=== PATIENT | female | born 1985 | race African-American/Black ===

== ENCOUNTER 2017-12-18 15:40 | Emergency (ER) | payer SELFPAY ==
[~2017-12-18] VITALS: Ht 170.2 cm; Wt 61.0 kg
[~2017-12-18 15:40] MED LIST: ALBUTEROL
[2017-12-18] MEDS ORDERED: ACETAMINOPHEN 325MG TABLET PO STA (18:31)
[2017-12-18 18:57] LABS: BASOPHILS % 0.2 % (0.0-2.0); EOSINOPHILS % 0.3 % (0.0-5.0); HEMATOCRIT. 40.2 % (36.0-48.0); HEMOGLOBIN. 13.5 g/dL (12.0-16.0); LYMPHOCYTES % 12.7 % (20.0-50.0); MEAN CORPUSCULAR VOLUME 83.8 fL (81.0-99.0); MEAN PLATELET VOLUME 7.5 fl (7.4-10.4); MONOCYTES % 12.9 % (2.0-8.0); NEUTROPHILS % 73.9 % (40.0-76.0); PLATELET 238 x1000/uL (130-400); RED CELL DISTRIBUTION WIDTH 13.7 % (11.6-14.6)
[2017-12-18 19:01] LABS: CHLORIDE 101 mEq/L (98-107)
[2017-12-18 19:02] LABS: PROTHROMBIN TIME 10.8 sec (9.4-11.6)
[2017-12-18 19:03] LABS: CARBON DIOXIDE 30 mEq/L (21-32)
[2017-12-18] MEDS ORDERED: KETOROLAC 60MG/2ML VIAL IM ONE (20:00)
[2017-12-18] MEDS ORDERED: CYCLOBENZAPRINE 10MG TABLET PO ONE (20:00)
[2017-12-18 20:38] LABS: CLARITY URINE CLOUDY (CLEAR); COLOR URINE DARK YELLOW (YELLOW); KETONES URINE 1+ (NEGATIVE); LEUKOCYTE ESTERASE URINE 1+ (NEGATIVE); NITRITE URINE NEGATIVE (NEGATIVE); OCCULT BLOOD URINE NEGATIVE (NEGATIVE); PH URINE 5.5 (4.5-8.0); PROTEIN URINE TRACE (NEGATIVE); SPECIFIC GRAVITY URINE 1.035 (1.005-1.030)
[2017-12-18 21:56] VITALS: BP 112/72
== END 2017-12-18 23:10 | disposition home or self-care (01) ==
LOC: ER 15:40
DX: B34.9 Viral infection, unspecified (principal); N30.00 Acute cystitis without hematuria; J45.909 Unspecified asthma, uncomplicated; Z88.0 Allergy status to penicillin; Z98.890 Other specified postprocedural states
CPT/HCPCS: 36415; 71045; 80053; 81001; 83605; 85025; 85610; 87040; 87086; 87186; 87804; 96372; 99285; J1885; Z7610

== ENCOUNTER 2018-12-19 13:05 | Emergency (ER) | payer MEDICAID ==
[~2018-12-19] VITALS: Ht 170.2 cm; Wt 66.0 kg
[2018-12-19] MEDS ORDERED: TRAMADOL 50MG TABLET PO ONE (16:30)
[2018-12-19 17:11] VITALS: BP 107/66
== END 2018-12-19 17:45 | disposition home or self-care (01) ==
LOC: ER 13:05
DX: G89.29 Other chronic pain (principal); M54.5 Low back pain; J45.909 Unspecified asthma, uncomplicated; Z88.0 Allergy status to penicillin; V89.2XXA Person injured in unspecified motor-vehicle accident, traffic, initial encounter; Y93.89 Activity, other specified; Y92.89 Other specified places as the place of occurrence of the external cause; Y99.8 Other external cause status
CPT/HCPCS: 72070; 72100; 81025; 99283